=== PATIENT | female | born 1950 | race Caucasian/White ===

== ENCOUNTER 2024-10-15 08:15 | Outpatient (CLI) | payer MEDICARE, SELFPAY ==
--- NOTE | ~2024-10-15 | CT_ITS ---
CT Scan of the Chest without Contrast: Clinical Indication: Lung cancer screening, nicotine dependence Technique: Contiguous sections were acquired throughout the chest without intravenous contrast. Dose reduction technique was used on this scan by utilizing automated exposure control and iterative recon struction technique. The dose-length product (DLP) was 76.38 mGy-cm. Findings: There is no evidence of any significant mediastinal, hilar or axillary lymphadenopathy. The mediastin al soft tissues appear normal, sober extensive coronary artery calcifications. There is no evidence of pleural or pericardial effusion. Moderate emphysema. 4 mm right lower lobe pulmonary nodule present (axial image 56). 3 mm right basil ar pulmonary nodule present (axial image 96). 2 mm left basilar pulmonary nodule present (axial image 104). There is lingular atelectasis. Images through the upper abdomen reveal no abnormalities. Impression: Lung RADS 2: Benign appearance. 12 month follow-up screening CT advised. Reviewed, dictated and finalized at [facility]. UNDERWRITER Impression: Lung RADS 2: Benign appearance. 12 month follow-up screening CT advised.
== END 2024-10-15 08:16 | disposition home or self-care (01) ==
LOC: MICIMG 08:19
PROVIDERS: PCP Internal Medicine; Visit Provider Internal Medicine
DX: Z12.2 Encounter for screening for malignant neoplasm of respiratory organs (principal); Z87.891 Personal history of nicotine dependence
CPT/HCPCS: 71271